=== PATIENT | female | born 1990 | race Hispanic/Latino ===

== ENCOUNTER 2019-09-06 08:52 | Emergency (ER) | payer MEDICAID ==
--- NOTE | 2019-09-06 09:57 | XRay Report ---
CHEST 1 VIEW INDICATION: Chest Pain. COMPARISON: None FINDINGS: Support devices: None. Heart: Within normal limits. Lungs/Pleura: No acute air space or interstitial disease. Additional findings: None. IMPRESSION: No acute findings. Signer Name: Ryan Gates Jr, MD Signed: 09/06/2019 9:52 AM Workstation Name: [id number]
[2019-09-06] MEDS ORDERED: IBUPROFEN 800 MG TAB PO ONE (10:01)
[2019-09-06] MEDS ORDERED: ONDANSETRON 4 MG ODT TAB PO ONE (10:01)
[2019-09-06] MEDS ORDERED: HYDROcodone/ACETAMINOPHEN 5-325 MG TAB PO ONE (10:01)
--- NOTE | 2019-09-06 10:01 | Emergency Department Report ---
ED General Adult HPI - General Chief complaint: Chest Pain Stated complaint: SHARP PAIN ALL OVER TORSO Time Seen by Provider: 09/06/19 09:26 Source: patient Mode of arrival: Ambulatory Limitations: No Limitations - History of Present Illness Initial comments: Patient is a 29-year-old female who states for the past 2-3 days he's had bilateral back pain radiating into her upper abdomen and chest. Patient states the sharp pain. It is not worse with palpation. Patient states it's a 8 out of 10 in severity as a deep pain. Patient states that she has nausea and shortness of breath secondary to the pain. She states she had dysuria 2 days ago but this is resolved. She denies hematuria vomiting diarrhea cough cold or congestion. - Related Data Home Medications Medication Instructions Recorded Confirmed Last Taken Enoxaparin [Lovenox] 40 mg SQ QDAY 05/11/14 09/17/14 08/26/14 Vit No.126/Iron/Folic 1 tab PO DAILY 05/11/14 09/17/14 09/15/14 [Classic Tablet] Previous Rx's Medication Instructions Recorded Last Taken Type Amoxicillin [Trimox CAP] 500 mg PO BID #20 capsule 02/02/14 08/22/14 Rx Docusate Sodium [Colace] 100 mg PO BID PRN #60 capsule 09/17/14 Unknown Rx Enoxaparin [Lovenox] 40 mg SQ QDAY #30 syringe 09/17/14 Unknown Rx Ibuprofen [Motrin] 800 mg PO Q8H PRN #30 tablet 09/17/14 Unknown Rx Lidocaine/Prilocaine [Emla Cream] 5 gm TP ONCE #1 cream..g. 09/17/14 Unknown Rx oxyCODONE /ACETAMINOPHEN [Percocet 1 - 2 tab PO Q6HR PRN #30 tablet 09/17/14 Unknown Rx 5/325] Nitrofurantoin [place]/M-Cryst 100 mg PO Q12HR #14 capsule 09/06/19 Unknown Rx [Macrobid CAP] Ondansetron [Zofran Odt] 4 mg PO Q8HR #10 tab.rapdis 09/06/19 Unknown Rx Phenazopyridine [Pyridium] 200 mg PO BID #6 tab 09/06/19 Unknown Rx traMADoL [Ultram] 50 mg PO Q6HR PRN #12 tablet 09/06/19 Unknown Rx Allergies Allergy/AdvReac Type Severity Reaction Status Date / Time No Known Allergies Allergy Verified 05/11/14 18:37 ED Review of Systems ROS: Stated complaint: SHARP PAIN ALL OVER TORSO Other details as noted in HPI Comment: All other systems reviewed and negative ED Past Medical Hx - Past Medical History Hx Hypertension: No Hx Diabetes: No Hx Deep Vein Thrombosis: No Hx Renal Disease: Yes (RECURRENT UTIs) Hx Sickle Cell Disease: No (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; last dose Saturday 09/15) Hx Seizures: No Hx Asthma: No Hx HIV: No - Surgical History Additional Surgical History: C section x 3 - Social History Smoking Status: Current Every Day Smoker Substance Use Type: None - Medications Home Medications: Home Medications Medication Instructions Recorded Confirmed Last Taken Type Amoxicillin [Trimox CAP] 500 mg PO BID #20 capsule 02/02/14 09/17/14 08/22/14 Rx Enoxaparin [Lovenox] 40 mg SQ QDAY 05/11/14 09/17/14 08/26/14 History Vit No.126/Iron/Folic 1 tab PO DAILY 05/11/14 09/17/14 09/15/14 History [Classic Tablet] Docusate Sodium [Colace] 100 mg PO BID PRN #60 capsule 09/17/14 Unknown Rx Enoxaparin [Lovenox] 40 mg SQ QDAY #30 syringe 09/17/14 Unknown Rx Ibuprofen [Motrin] 800 mg PO Q8H PRN #30 tablet 09/17/14 Unknown Rx Lidocaine/Prilocaine [Emla Cream] 5 gm TP ONCE #1 cream..g. 09/17/14 Unknown Rx oxyCODONE /ACETAMINOPHEN [Percocet 1 - 2 tab PO Q6HR PRN #30 tablet 09/17/14 Unknown Rx 5/325] Nitrofurantoin [place]/M-Cryst 100 mg PO Q12HR #14 capsule 09/06/19 Unknown Rx [Macrobid CAP] Ondansetron [Zofran Odt] 4 mg PO Q8HR #10 tab.rapdis 09/06/19 Unknown Rx Phenazopyridine [Pyridium] 200 mg PO BID #6 tab 09/06/19 Unknown Rx traMADoL [Ultram] 50 mg PO Q6HR PRN #12 tablet 11/27/19 Unknown Rx ED Physical Exam - General Limitations: No Limitations General appearance: alert, anxious, in distress (secondary to pain) - Head Head exam: Present: atraumatic, normocephalic - Eye Eye exam: Present: normal appearance - ENT ENT exam: Present: mucous membranes moist - Neck Neck exam: Present: normal inspection - Respiratory Respiratory exam: Present: normal lung sounds bilaterally. Absent: respiratory distress, wheezes, rales, rhonchi - Cardiovascular Cardiovascular Exam: Present: regular rate, normal rhythm, normal heart sounds. Absent: systolic murmur, diastolic murmur, rubs, gallop - GI/Abdominal GI/Abdominal exam: Present: soft, tenderness (central abdomen), normal bowel sounds. Absent: distended, guarding, rebound, rigid - Extremities Exam Extremities exam: Present: normal inspection - Back Exam Back exam: Present: normal inspection. Absent: CVA tenderness (R), CVA t enderness (L) - Neurological Exam Neurological exam: Present: alert, oriented X3 - Psychiatric Psychiatric exam: Present: normal affect, normal mood - Skin Skin exam: Present: warm, dry, intact, normal color. Absent: rash ED Course Vital Signs 09/06/19 09/06/19 08:57 11:51 Temperature 97.2 F L 98 F Pulse Rate 86 78 Respiratory 18 14 Rate Blood Pressure 118/87 Blood Pressure 115/78 [l arm] O2 Sat by Pulse 100 100 Oximetry ED Medical Decision Making - Lab Data Lab Results 09/06/19 Range/Units 10:34 Urine Color Cleo (Yellow) Urine Turbidity Cloudy (Clear) Urine pH 5.0 (5.0-7.0) Ur Specific [place] 1.031 H (1.003-1.030) Urine Protein 100 mg/dl (Negative) mg/dL Urine Glucose (UA) Neg (Negative) mg/dL Urine Ketones 20 (Negative) mg/dL Urine Blood Sm (Negative) Urine Nitrite Neg (Negative) Urine Bilirubin Neg (Negative) Urine Urobilinogen 2.0 (<2.0) mg/dL Ur Leukocyte Esterase Sm (Negative) Urine WBC (Auto) 29.0 H (0.0-6.0) /HPF Urine RBC (Auto) 33.0 (0.0-6.0) /HPF U Epithel Cells (Auto) 26.0 H (0-13.0) /HPF Urine Bacteria (Auto) 2+ (Negative) /HPF Urine Mucus 2+ /HPF Urine HCG, Qual Negative (Negative) - EKG Data -: EKG Interpreted by Me EKG shows normal: sinus rhythm, axis, intervals, QRS complexes, ST-T waves Rate: normal - Radiology Data CT ABDOMEN AND PELVIS WITHOUT CONTRAST HISTORY: back pain with dysuria for 2 days COMPARISON: None. TECHNIQUE: Axial CT images were obtained through the abdomen and pelvis without IV contrast. Sagittal and coronal reformatted images. All CT scans at this location are performed using CT dose reduction for ALARA by means of automated exposure control. FINDINGS: CT ABDOMEN: Lung Bases: Clear. Liver: No significant abnormality. Biliary: No significant abnormality. Spleen: No significant abnormality. Unenlarged. Pancreas: No significant abnormality. Adrenals: No significant abnormality. Kidneys: The renal pyramids in both kidneys are slightly hyperdense suggesting nephrocalcinosis. No focal renal stone is appreciated. No cystic disease, mass or hydronephrosis. The ureters are normal course and caliber. Lymphatics: No lymphadenopathy. Vasculature: No significant abnormality. Bowel/Peritoneum: No significant abnormality. No free air. No free fluid. Normal appendix. CT PELVIS: : The bladder is partially empty. There may be mild diffuse bladder wall thickening. Cystitis could be considered. Multiple surgical clips are identified in the left adnexal region, correlate with history. The uterus and right adnexa are unremarkable. Osseous Structures: No significant abnormality. Additional Findings: None IMPRESSION: Nephrocalcinosis. Question cystitis. See above. Signer Name: Ryan Gates Jr, MD Signed: 09/06/2019 12:00 PM Workstation Name: [id number] - Medical Decision Making Patient is a 29-year-old female is presenting with bilateral back and abdomen pain. Patient's urinalysis shows she does have a UTI with hematuria. Because of the patient's severity of pain and her distress a CT was ordered to confirm or deny the presence of pyelonephritis or obstructive uropathy. These were not present on CT. Patient will be started on antibiotics and pain management for acute cystitis and patient be discharged home. Patient's pain did improve with pain patient is given in the emergency department. Critical care attestation.: If time is entered above; I have spent that time in minutes in the direct care of this critically ill patient, excluding procedure time. ED Disposition Clinical Impression: Acute cystitis Disposition: DC-01 TO HOME OR SELFCARE Is pt being admited?: No Does the pt Need Aspirin: No Condition: Stable Instructions: Urinary Tract Infection in Women (ED) Time of Disposition: 12:37
[2019-09-06 11:25] LABS: Bacteria,Urine 2+ /HPF (Negative); Bilirubin,Urine NEG (Negative); Blood,Urine SM (Negative); Color,Urine Amber (Yellow); Mucus,Urine 2+ /HPF
[2019-09-06 11:26] LABS: HCG Qualitative,Urine Negative (Negative)
[2019-09-06 11:52] VITALS: BP 115/78
--- NOTE | 2019-09-06 12:04 | Cat Scan Report ---
CT ABDOMEN AND PELVIS WITHOUT CONTRAST HISTORY: back pain with dysuria for 2 days COMPARISON: None. TECHNIQUE: Axial CT images were obtained through the abdomen and pelvis without IV contrast. Sagittal and coronal reformatted images. All CT scans at this location are performed using CT dose reduction for ALARA by means of automated exposure control. FINDINGS: CT ABDOMEN: Lung Bases: Clear. Liver: No significant abnormality. Biliary: No significant abnormality. Spleen: No significant abnormality. Unenlarged. Pancreas: No significant abnormality. Adrenals: No significant abnormality. Kidneys: The renal pyramids in both kidneys are slightly hyperdense suggesting nephrocalcinosis. No f ocal renal stone is appreciated. No cystic disease, mass or hydronephrosis. The ureters are normal co urse and caliber. Lymphatics: No lymphadenopathy. Vasculature: No significant abnormality. Bowel/Peritoneum: No significant abnormality. No free air. No free fluid. Normal appendix. CT PELVIS: : The bladder is partially empty. There may be mild diffuse bladder wall thickening. Cystitis could be considered. Multiple surgical clips are identified in the left adnexal region, correlate with his tory. The uterus and right adnexa are unremarkable. Osseous Structures: No significant abnormality. Additional Findings: None IMPRESSION: Nephrocalcinosis. Question cystitis. See above. Signer Name: Ryan Gates Jr, MD Signed: 09/06/2019 12:00 PM Workstation Name: [id number]
== END 2019-09-06 12:44 | disposition home or self-care (01) ==
LOC: ED 08:52
DX: N30.00 Acute cystitis without hematuria (principal); N28.9 Disorder of kidney and ureter, unspecified; F17.200 Nicotine dependence, unspecified, uncomplicated; Z98.890 Other specified postprocedural states; Z79.2 Long term (current) use of antibiotics; Z79.1 Long term (current) use of non-steroidal anti-inflammatories (NSAID); Z79.899 Other long term (current) drug therapy
CPT/HCPCS: 71045; 74176; 81001; 81025; 87076; 87086; 87186; 93005; 93010; Q0162